=== PATIENT | female | born 1965 | race Caucasian/White ===

== ENCOUNTER → 2017-10-31 08:27 | Outpatient (CLI) | payer BC, SELFPAY ==
[2017-10-31 10:15] LABS: Alanine Aminotransferase 40 U/L (12-78); Albumin Level 3.8 gm/dL (3.4-5.0); Albumin/Globulin Ratio 1.2 (1.1-1.8); Alkaline Phosphatase 70 U/L (46-116); Anion Gap 9.7 mEq/L (5-15); Aspartate Amino Transferase 13 U/L (15-37); Bilirubin,Total 0.4 mg/dL (0.2-1.0); Blood Urea Nitrogen 13 mg/dL (7-18); Calcium 9.1 mg/dL (8.5-10.1); Carbon Dioxide 32 mmol/L (21.0-32.0); Chloride 105 mmol/L (98-107); Cholesterol 131 mg/dL (140-200); Creatinine,Serum 0.72 mg/dL (0.55-1.02); Estimated Glomerular Filt Rate 85 ml/min (>60); Free T4 (Free Thyroxine) 1.03 ng/dl (0.76-1.46); GFR (African American) 103 ML/MIN (>60); Globulin 3.2 gm/dl (1.3-3.2); Glucose 98 mg/dL (74-106); HDL Cholesterol 65 mg/dL (29-89); LDL Cholesterol 58 mg/dL (0-130); Potassium 4.7 mmoL/L (3.5-5.1); Sodium 142 mmol/L (136-145); Thyroid Stimulating Hormone 0.15 uIU/ml (0.358-3.740); Triglycerides 42 mg/dL (30-200); VLDL Cholesterol 8 mg/dL (0-40)
== END ==
PROVIDERS: PCP Nurse Practitioner Family; Visit Provider Nurse Practitioner Family
DX: R00.2 Palpitations (principal); Z13.220 Encounter for screening for lipoid disorders
CPT/HCPCS: 36415; 80053; 80061; 84439; 84443

== ENCOUNTER → 2020-11-15 07:19 | Outpatient (CLI) | payer BC, SELFPAY ==
[2020-11-15 07:57] LABS: Basophils # 0.1 K/mm3 (0-0.2); Basophils % 1.4 % (0.1-2.0); Eosinophils # 0.1 K/mm3 (0.0-0.4); Eosinophils % 3.8 % (0.1-12.0); Hematocrit 42.1 % (37.0-47.0); Hemoglobin 13.5 g/dL (12.2-16.2); Lymphocytes # 1.3 K/mm3 (0.7-4.5); Lymphocytes % 36.5 % (10-50); Mean Corpuscular Hemoglobin 28.5 pg (27.0-31.2); Mean Corpuscular Volume 89.2 fl (81-99); Mean Platelet Volume 6.9 fl (7.4-10.4); Monocytes # 0.2 K/mm3 (0.1-1.0); Monocytes % 6.4 % (1.7-9.3); Neutrophils # 1.9 K/mm3 (1.8-7.8); Platelet Count 472 K/mm3 (142-424); Red Blood Count 4.72 M/mm3 (4.20-5.40); White Blood Count 3.7 K/mm3 (4.8-10.8)
[2020-11-15 09:39] LABS: 25-OH Vitamin D, Total 50.7 ng/mL (30-100)
[2020-11-15 09:50] LABS: Alanine Aminotransferase 28 U/L (12-78); Albumin Level 4.6 g/dl (3.5-5.0); Albumin/Globulin Ratio 1.7 (1.1-1.8); Alkaline Phosphatase 70 U/L (38-126); Anion Gap 12.7 mEq/L (5-15); Aspartate Amino Transferase 31 U/L (14-36); Bilirubin,Total 0.5 mg/dl (0.2-1.3); Blood Urea Nitrogen 14 mg/dl (7-17); Calcium 9.7 mg/dl (8.4-10.2); Carbon Dioxide 29 mmol/L (22.0-30.0); Chloride 102 mmol/L (98-107); Cholesterol 151 mg/dl (140-200); Estimated Glomerular Filt Rate 87 ml/min (>60); GFR (African American) 105 ML/MIN (>60); Globulin 2.7 g/dL (1.3-3.2); Glucose 99 mg/dl (74-100); HDL Cholesterol 75 mg/dl (40-60); Potassium 4.7 mmoL/L (3.5-5.1); Sodium 139 mmol/L (136-145); Total Protein,Serum 7.3 g/dl (6.3-8.2); Triglycerides 56 mg/dl (30-150); VLDL Cholesterol 11 mg/dL (0-40)
[2020-11-15 10:00] LABS: Direct LDL Cholesterol 54.16 mg/dL (100-129)
[2020-11-15 10:55] LABS: Vitamin B12 628 pg/mL (239-931)
== END ==
PROVIDERS: Visit Provider Family Medicine
DX: R53.83 Other fatigue (principal); E78.00 Pure hypercholesterolemia, unspecified
CPT/HCPCS: 36415; 80053; 80061; 82306; 82607; 84443; 85025

== ENCOUNTER → 2021-08-10 09:44 | Outpatient (CLI) | payer BC, SELFPAY ==
--- NOTE | 2021-08-10 09:52 | XR_ITS ---
PROCEDURE INFORMATION: Exam: XR Left Knee Exam date and time: 08/10/2021 9:52 AM Age: 55 years old Clinical indication: Pain; Knee; Left; Additional info: Fell putting up lights -- knee injury TECHNIQUE: Imaging protocol: XR Left knee. Views: 3 views. COMPARISON: No relevant prior studies available. FINDINGS: Bones/joints: There is a linear lucency extending to the lateral tibial plateau on series 2. A nondisplaced fracture may be present. Soft tissues: Normal. Other findings: There is a small effusion. IMPRESSION: Question nondisplaced fracture lateral tibial plateau.
== END ==
PROVIDERS: PCP Nurse Practitioner Family; Visit Provider Physician Assistant
DX: S89.92XA Unspecified injury of left lower leg, initial encounter (principal)
CPT/HCPCS: 73562

== ENCOUNTER → 2021-08-15 07:16 | Outpatient (CLI) | payer BC, SELFPAY ==
--- NOTE | 2021-08-15 07:17 | CT_ITS ---
PROCEDURE: CT KNEE LT WO CON CLINICAL HISTORY: evaluate for left tibial plateau fracture COMPARISON: CR XR KNEE LT 3V from 08/10/2021 TECHNIQUE: Axial images obtained with sagittal and coronal reformats. All CT scans at the facility use one or more dose reduction, viz: automated exposure control, ma/kV adjustment per patient size (including targeted exams where dose is matched to indication, i.e. head), or iterative reconstruction technique. FINDINGS: There is a nondisplaced fracture the medial aspect the lateral tibial plateau. Fracture involves the articular surface just lateral to the posterior tibial spine. No depression the tibial plateau. Minimal osteoarthritic changes are present involving the medial compartment. Small suprapatellar effusion. No lytic or blastic change. IMPRESSION: Nondisplaced lateral tibial plateau fracture with knee joint effusion Dictated by: Henry Cruz MD 08/15/2021 13:50 Henry Cruz MD in [place] 08/15/2021 13:50
== END ==
PROVIDERS: PCP Nurse Practitioner Family; Visit Provider Orthopaedic Surgery
DX: S82.142A Displaced bicondylar fracture of left tibia, initial encounter for closed fracture (principal)
CPT/HCPCS: 73700

== ENCOUNTER 2021-08-20 10:02 | Outpatient (RCR) | payer BC, SELFPAY | END 2021-08-20 11:00 | disposition home or self-care (01) | LOC: PT 10:02 | PROVIDERS: Visit Provider Orthopaedic Surgery | DX: S82.142D Displaced bicondylar fracture of left tibia, subsequent encounter for closed fracture with routine healing (principal) | CPT/HCPCS: 97760 ==

== ENCOUNTER → 2021-08-24 09:43 | Outpatient (CLI) | payer BC, SELFPAY | PROVIDERS: Visit Provider Ophthalmology | DX: Z01.812 Encounter for preprocedural laboratory examination (principal); Z11.52 Encounter for screening for COVID-19 | CPT/HCPCS: C9803; U0003; U0005 ==

== ENCOUNTER 2021-08-27 06:45 | Day surgery (SDC) | payer BC, SELFPAY ==
[2021-08-22 14:45] VITALS: BMI 35.2
[2021-08-27] VITALS (12 sets, daily range): BP systolic 146–200; BP diastolic 79–99; PULSE 52–69; RESP 16–18; TEMP 36.7–36.9; O2SAT 99–100
== END 2021-08-27 09:22 | disposition home or self-care (01) ==
LOC: OR 06:46
PROVIDERS: PCP Family Medicine; Visit Provider Ophthalmology
PROC: (CPT 66982; principal; 2021-08-27 08:00)
DX: H25.812 Combined forms of age-related cataract, left eye (principal); H57.03 Miosis; H25.89 Other age-related cataract; Q13.0 Coloboma of iris; H02.834 Dermatochalasis of left upper eyelid; H02.831 Dermatochalasis of right upper eyelid; Z79.82 Long term (current) use of aspirin; Z88.0 Allergy status to penicillin
CPT/HCPCS: 66982; V2632

== ENCOUNTER → 2021-10-01 10:04 | Outpatient (CLI) | payer BC, SELFPAY ==
--- NOTE | 2021-10-01 10:08 | XR_ITS ---
FINAL REPORT CLINICAL HISTORY: LEFT TIBIAL PLATEAU FX f/u FINDINGS: LEFT KNEE: Three views of the left knee were obtained. Again noted is a fracture of the lateral tibial plateau without significant displacement. This fracture appears subacute. Visualized joint spaces are normally aligned. There is no joint effusion. Soft tissues are unremarkable. IMPRESSION: Subacute fracture of the tibial plateau as described. Reviewed, Interpreted and Dictated by Parag La III, MD Transcribed by Cha Resendiz Authenticated by Parag La III, MD on 10/01/2021 11:34:16 AM [facility]
== END ==
PROVIDERS: PCP Family Medicine; Visit Provider Orthopaedic Surgery
DX: S82.142A Displaced bicondylar fracture of left tibia, initial encounter for closed fracture (principal)
CPT/HCPCS: 73562

== ENCOUNTER → 2021-11-12 08:07 | Outpatient (CLI) | payer BC, SELFPAY ==
--- NOTE | 2021-11-12 08:11 | XR_ITS ---
FINAL REPORT CLINICAL HISTORY: left tibial plateau fx COMPARISON: 10/01/2021 FINDINGS: LEFT KNEE Three views demonstrate a nondisplaced tibial plateau fracture which is stable. Mild degenerative changes are present. No other fracture or dislocation. IMPRESSION: Fracture as above. Reviewed, Interpreted and Dictated by Parag La III, MD Transcribed by Meri Torrez Authenticated by Parag La III, MD on 11/12/2021 09:10:27 AM [facility]
== END ==
PROVIDERS: PCP Family Medicine; Visit Provider Orthopaedic Surgery
DX: S82.142A Displaced bicondylar fracture of left tibia, initial encounter for closed fracture (principal)
CPT/HCPCS: 73562

== ENCOUNTER → 2021-12-16 08:41 | Outpatient (CLI) | payer BC, SELFPAY ==
--- NOTE | 2021-12-16 08:45 | XR_ITS ---
FINAL REPORT TECHNIQUE: Bone mineral density was calculated of the lumbar spine and hip. CLINICAL HISTORY: . post menopausal screening FINDINGS: Using L1-4, the bone mineral density of the spine is 0.876 g/cm2, corresponding to T-score of -1.6. Using the right hip, the bone mineral density of the femoral neck is 0.659 g/cm2, corresponding to a T-score of -1.7. NOTE: T-score: Standard deviation compared with peak bone mass of young adult mean. *Following the recommendations of the International Society of Bone densitometry, classification of hip BMD is based on the lower of two T-scores; total hip or femoral neck. IMPRESSION: Diminished bone mineral density of the lumbar spine and right hip consistent with osteopenia. FRAX 10 year fracture risk is 7.4% for major osteoporotic fractures. Reviewed, Interpreted and Dictated by Parag La III, MD Transcribed by Cha Resendiz Authenticated by Parag La III, MD on 12/16/2021 11:45:[address] [facility]
== END ==
PROVIDERS: PCP Family Medicine; Visit Provider Orthopaedic Surgery
DX: S82.142D Displaced bicondylar fracture of left tibia, subsequent encounter for closed fracture with routine healing (principal)
CPT/HCPCS: 77080

== ENCOUNTER → 2022-04-26 08:22 | Outpatient (CLI) | payer BC, SELFPAY ==
[2022-04-26 09:35] LABS: Alanine Aminotransferase 41 U/L (12-78); Albumin Level 4.2 g/dl (3.5-5.0); Albumin/Globulin Ratio 1.8 (1.1-1.8); Alkaline Phosphatase 82 U/L (38-126); Anion Gap 8.1 mEq/L (5-15); Aspartate Amino Transferase 39 U/L (14-36); Blood Urea Nitrogen 17 mg/dl (7-17); Calcium 9.5 mg/dl (8.4-10.2); Carbon Dioxide 33 mmol/L (22.0-30.0); Chloride 105 mmol/L (98-107); Chol/HDL Ratio 2.2 (1-3.5); Cholesterol 129 mg/dl (140-200); Estimated Glomerular Filt Rate 86 ml/min (>60); GFR (African American) 104 ML/MIN (>60); Globulin 2.3 g/dL (1.3-3.2); Glucose 107 mg/dl (74-100); HDL Cholesterol 60 mg/dl (40-60); Potassium 5.1 mmoL/L (3.5-5.1); Sodium 141 mmol/L (136-145); Total Protein,Serum 6.5 g/dl (6.3-8.2); Triglycerides 46 mg/dl (30-150); VLDL Cholesterol 9 mg/dL (0-40)
[2022-04-26 09:51] LABS: 25-OH Vitamin D, Total 65.5 ng/mL (30-100)
[2022-04-26 09:53] LABS: Bilirubin,Total 0.1 mg/dl (0.2-1.3); Free T4 (Free Thyroxine) 0.93 ng/dl (0.78-2.19)
[2022-04-27 10:09] LABS: Direct LDL Cholesterol 60 mg/dL (100-129)
== END ==
PROVIDERS: PCP Family Medicine; Visit Provider Family Medicine
DX: E78.89 Other lipoprotein metabolism disorders (principal); R79.89 Other specified abnormal findings of blood chemistry; M85.89 Other specified disorders of bone density and structure, multiple sites
CPT/HCPCS: 36415; 80053; 80061; 82306; 84439; 84443

== ENCOUNTER → 2022-05-01 09:50 | Outpatient (CLI) | payer BC, SELFPAY ==
--- NOTE | 2022-05-01 09:53 | MM_ITS ---
PROCEDURE INFORMATION: Exam: MG Bilateral Screening 3D Mammography Exam date and time: 05/01/2022 9:53 AM Age: 56 years old Clinical indication: Screening mammogram TECHNIQUE: Imaging protocol: Bilateral Screening tomosynthesis and 2D mammography including computer-aided detection (CAD) when performed. COMPARISON: MG MY Digital Screen BILAT 02/17/2017 9:21 AM FINDINGS: MAMMOGRAPHY: Breast composition: There are scattered areas of fibroglandular density. Mass: None. Architectural distortion: No new or suspicious architectural distortion. Calcifications: No new or suspicious calcifications are present Asymmetric density: No new or suspicious asymmetric density is present Skin thickening: None. Axillary adenopathy: None. IMPRESSION: No mammographic evidence of malignancy. Recommend annual screening mammography unless otherwise clinically indicated. ASSESSMENT: BI-RADS category 1: Negative
== END ==
PROVIDERS: PCP Family Medicine; Visit Provider Family Medicine
DX: Z12.31 Encounter for screening mammogram for malignant neoplasm of breast (principal)
CPT/HCPCS: 77063; 77067

== ENCOUNTER → 2022-05-15 15:16 | Outpatient (CLI) | payer BC, SELFPAY | PROVIDERS: PCP Family Medicine; Visit Provider Nurse Practitioner | DX: T63.91XA Toxic effect of contact with unspecified venomous animal, accidental (unintentional), initial encounter (principal); Z87.892 Personal history of anaphylaxis | CPT/HCPCS: 36415; 86003 ==

== ENCOUNTER 2023-10-26 15:12 | Outpatient (CLI) | payer BC, SELFPAY | END 2023-10-26 23:59 | LOC: RT 15:13 | PROVIDERS: PCP Family Medicine; Visit Provider Physician Assistant | DX: I49.9 Cardiac arrhythmia, unspecified (principal) | CPT/HCPCS: 93225; 93226 ==

== ENCOUNTER 2023-11-07 07:59 | Outpatient (CLI) | payer BC, SELFPAY ==
[2023-11-07 08:38] LABS: Basophils % 0.5 % (0.1-2.0); Eosinophils # 0.1 K/mm3 (0.0-0.4); Eosinophils % 2.1 % (0.1-12.0); Hematocrit 43.4 % (37.0-47.0); Hemoglobin 14.2 g/dL (12.2-16.2); Lymphocytes # 0.7 K/mm3 (0.7-4.5); Lymphocytes % 14.8 % (10-50); Mean Corpuscular HGB Conc 32.7 g/dL (31.8-35.4); Mean Corpuscular Volume 91.8 fl (81-99); Mean Platelet Volume 7.4 fl (7.4-10.4); Monocytes # 0.3 K/mm3 (0.1-1.0); Monocytes % 5.5 % (1.7-9.3); Neutrophils # 3.8 K/mm3 (1.8-7.8); Platelet Count 449 K/mm3 (142-424); Red Blood Count 4.73 M/mm3 (4.20-5.40); Red Cell Distribution Width 13.4 % (11.5-17.5)
[2023-11-07 10:24] LABS: Alanine Aminotransferase 28 U/L (12-78); Albumin Level 4.4 g/dl (3.5-5.0); Albumin/Globulin Ratio 1.8 (1.1-1.8); Alkaline Phosphatase 65 U/L (38-126); Anion Gap 10.2 mEq/L (5-15); Aspartate Amino Transferase 32 U/L (14-36); Bilirubin,Total 0.7 mg/dl (0.2-1.3); Blood Urea Nitrogen 13 mg/dl (7-17); Calcium 9.4 mg/dl (8.4-10.2); Carbon Dioxide 32 mmol/L (22.0-30.0); Chloride 102 mmol/L (98-107); Chol/HDL Ratio 2.2 (1-3.5); Cholesterol 151 mg/dl (140-200); Estimated Glomerular Filt Rate 86 ml/min (>60); GFR (African American) 104 ML/MIN (>60); Globulin 2.5 g/dL (1.3-3.2); Glucose 98 mg/dl (74-100); HDL Cholesterol 68 mg/dl (40-60); Potassium 5.2 mmoL/L (3.5-5.1); Sodium 139 mmol/L (136-145); Total Protein,Serum 6.9 g/dl (6.3-8.2); Triglycerides 50 mg/dl (30-150); VLDL Cholesterol 10 mg/dL (0-40)
[2023-11-07 10:40] LABS: Free T4 (Free Thyroxine) 1.04 ng/dl (0.78-2.19)
[2023-11-07 10:41] LABS: 25-OH Vitamin D, Total 51.5 ng/mL (30-100)
[2023-11-07 10:55] LABS: Thyroid Stimulating Hormone 1.91 uIU/mL (0.465-4.68)
[2023-11-07 11:14] LABS: Vitamin B12 718 pg/mL (239-931)
== END 2023-11-07 23:59 ==
PROVIDERS: PCP Family Medicine; Visit Provider Physician Assistant
DX: I49.8 Other specified cardiac arrhythmias (principal); I10 Essential (primary) hypertension; E78.2 Mixed hyperlipidemia; E55.9 Vitamin D deficiency, unspecified; E53.8 Deficiency of other specified B group vitamins
CPT/HCPCS: 36415; 80053; 80061; 82306; 82607; 84439; 84443; 85025

== ENCOUNTER 2023-11-12 14:37 | Outpatient (CLI) | payer BC, SELFPAY | END 2023-11-12 23:59 | LOC: RT 14:38 | PROVIDERS: PCP Family Medicine; Visit Provider Nurse Practitioner Family | DX: I49.1 Atrial premature depolarization (principal); I49.3 Ventricular premature depolarization; R00.2 Palpitations; R06.00 Dyspnea, unspecified; R53.83 Other fatigue | CPT/HCPCS: 93270 ==

== ENCOUNTER 2023-11-27 12:46 | Outpatient (CLI) | payer BC, SELFPAY ==
--- NOTE | 2023-11-27 12:46 | CA_ITS ---
APPROVED REPORT EXAM: Comprehensive 2D, Doppler, and color-flow Echocardiogram Support Representative: Augustina Finch, RT(R) Ht: 5 ft 0 in Wt: 186lbs BSA: 1.81 BP: 142/88 mmHg Indications: ABN EKG, palpitations, PIERRE, PAC'S, PVC'S 2D Dimensions Left Atrium 3.75 cm F: 2.7 - 3.8 LA Volume 46.40 mL LVOT 1.89 cm (M/F) 1.5-2.5 LA Volume Index 25.64 mL/m2 (M/F) 16-34 EF AP4 54.10 % GL Strain -17.0 % M-Mode Dimensions RVDd 2.92 cm (0.9-2.6) LVDd 4.96 cm (3.5-5.7) Ao Diam 2.78 cm (2.0-3.7) LVDs 3.44 cm (3.5-5.7) IVSd 1.04 cm (0.6-1.1) PWd 0.72 cm (0.6-1.1) EF (Teich) 58.00% FS 30.60% EDV (Teich) 116.10 mL ESV (Teich) 48.80 mL LV Diastology E Decel Time 247 (160-240 msec) E/A Ratio 0.9 MED E' 9.3 (>= 7 cm/sec) E'/MED E' Ratio 7.94 (<= 14) LAT E' 14.2 (>= 10 cm/sec) E/LAT E' Ratio 5.20 (<= 14) Mitral Valve MV E Max Truong. 74.0 (40-130 cm/s) MV A Velocity 80.0 (40-130 cm/s) E/A Ratio 0.92 MV Decel. Time 247 (160-240 ms) Tricuspid Valve TR P. Velocity 270.00 cm/s RAP Estimate 10.00 mmHg RVSP 39.10 mmHg Left Ventricle The left ventricle is normal size. The left ventricular systolic function is normal. The left ventricular ejection fraction is within the normal range. There is normal left ventricular wall thickness. There is normal LV segmental wall motion. The left ventricular diastolic function is normal. LVEF is 60%. Right Ventricle The right ventricle is normal size. The right ventricular systolic function is normal. Atria The left atrium size is normal. The right atrium size is normal. There is no Doppler evidence of interatrial shunt. Aortic Valve The aortic valve opens well. There is no aortic valvular stenosis. No aortic regurgitation is present. Mitral Valve The mitral valve is mildly thickened. No evidence of mitral valve stenosis. Mild mitral regurgitation. Tricuspid Valve The tricuspid valve leaflets are thin and pliable. Mild tricuspid regurgitation. RVSP is 20-25 mmHg. Pulmonic Valve The pulmonary valve is normal in structure. Trace pulmonic regurgitation. Great Vessels The aortic root is normal in size. The ascending aorta is normal in size. IVC is normal in size and collapses >50% with inspiration. Pericardium There is no pericardial effusion. Other Information Study Quality: Adequate Conclusion Normal biventricular systolic function. Mild MR, mild TR. Electronically signed by : Saige Dillon MD 11/29/2023 23:21:57
== END 2023-11-27 23:59 ==
LOC: RT 12:46
PROVIDERS: PCP Family Medicine; Visit Provider Nurse Practitioner Family
DX: R00.2 Palpitations (principal); R06.00 Dyspnea, unspecified; I49.1 Atrial premature depolarization; I49.3 Ventricular premature depolarization; R53.83 Other fatigue
CPT/HCPCS: 93306

== ENCOUNTER 2024-08-04 15:49 | Outpatient (CLI) | payer BC, SELFPAY ==
--- NOTE | 2024-08-04 15:54 | XR_ITS ---
PROCEDURE INFORMATION: Exam: XR Right Knee Exam date and time: 08/04/2024 4:09 PM Age: 58 years old Clinical indication: Pain; Knee; Right; Additional info: Pain, joint, knee, right TECHNIQUE: Imaging protocol: Radiologic exam of the right knee. Views: 3 views. COMPARISON: No relevant prior studies available. FINDINGS: Bones/joints: No evidence of acute fracture or malalignment. No significant knee joint effusion. Soft tissues: Unremarkable. IMPRESSION: No evidence of acute osseous abnormality in the right knee.
== END 2024-08-04 23:59 | disposition home or self-care (01) ==
LOC: RAD 15:50
PROVIDERS: PCP Family Medicine; Visit Provider Physician Assistant
DX: M25.561 Pain in right knee (principal)
CPT/HCPCS: 73562

== ENCOUNTER 2024-10-12 15:18 | Outpatient (CLI) | payer BC, SELFPAY ==
--- NOTE | 2024-10-12 15:53 | ECG_ITS ---
APPROVED REPORT Exam: Resting ECG HR:70 bpm ECG Measurements Heart Rate 70 AXES MD 125 P 49 QRSd 96 QRS 49 QT 408 T 66 QTc 429 Conclusion SINUS RHYTHM WITH FREQUENT VENTRICULAR PREMATURE COMPLEXES ABNORMAL RHYTHM ECG UNCONFIRMED REPORT Electronically signed by : Aristeo Carrasquillo MD 10/18/2024 20:08:43
[2024-10-12 15:54] VITALS: BMI 36.1
[2024-10-12 16:07] LABS: Basophils # 0.1 K/mm3 (0-0.2); Basophils % 1.2 % (0.1-2.0); Eosinophils # 0.1 K/mm3 (0.0-0.4); Eosinophils % 3.1 % (0.1-12.0); Hematocrit 38.4 % (37.0-47.0); Hemoglobin 12.8 g/dL (12.2-16.2); Lymphocytes # 1.7 K/mm3 (0.7-4.5); Lymphocytes % 40.6 % (10-50); Mean Corpuscular HGB Conc 33.3 g/dL (31.8-35.4); Mean Corpuscular Hemoglobin 29.2 pg (27.0-31.2); Mean Corpuscular Volume 87.5 fl (81-99); Mean Platelet Volume 8.6 fl (7.4-10.4); Monocytes # 0.4 K/mm3 (0.1-1.0); Monocytes % 8.9 % (1.7-9.3); Neutrophils # 1.9 K/mm3 (1.8-7.8); Platelet Count 412 K/mm3 (142-424); Red Blood Count 4.39 M/mm3 (4.20-5.40); Red Cell Distribution Width 12.3 % (11.5-17.5); White Blood Count 4.2 K/mm3 (4.8-10.8)
[2024-10-12 16:20] LABS: Blood Urea Nitrogen 15 mg/dl (7-17); Calcium 9.4 mg/dl (8.4-10.2); Carbon Dioxide 28 mmol/L (22.0-30.0); Chloride 102 mmol/L (98-107); Creatinine Clearance Estimated 132 mL/min (50-200); Estimated Glomerular Filt Rate 102 ml/min (>60); GFR (African American) 123 ML/MIN (>60); Glucose 97 mg/dl (74-100); Sodium 139 mmol/L (136-145)
== END 2024-10-12 23:59 | disposition home or self-care (01) ==
LOC: PREOP 15:19
PROVIDERS: Nurse Anesthetist, Certified Registered; PCP Family Medicine; Visit Provider Orthopaedic Surgery
DX: R94.31 Abnormal electrocardiogram [ECG] [EKG]
CPT/HCPCS: 80048; 85025; 93005

== ENCOUNTER 2024-10-26 08:10 | Day surgery (SDC) | payer BC, SELFPAY ==
[2024-10-13 12:48] VITALS: BMI 36.1
[2024-10-26] VITALS (8 sets, daily range): BP systolic 107–157; BP diastolic 49–98; PULSE 63–73; RESP 16–18; TEMP 36.2; O2SAT 94–97
[2024-10-26] MEDS: LACTATED RINGERS 1000ML 1,000 ML 100 ML IV (09:39)
--- NOTE | 2024-10-26 09:39 | P.PNANES_ITS ---
[facility] Disclaimer: The information contained in this section may have been updated after the patient was seen, as this information can be updated by other users. Medical History Indigestion Abnormal Holter exam Fatigue PVC (premature ventricular contraction) PAC (premature atrial contraction) Dyspnea Palpitations Surgical History History of cataract surgery History of delivery History of tubal ligation History of partial thyroidectomy Family History Other Family history of aortic aneurysm Family history of hypertension Social History Smoking Status: Never smoker second hand exposure: No alcohol intake: never substance use type: denies use current occupational status: employed Travel in the last 8 weeks: None household members: spouse housing: house current occupation: teacher aid current occupational exposures/hazards: No caffeine: Yes [facility] Anesthesia Checklist Patient Identification Patient Identification: Arm Band and Verbal (Name & ) Structural Data Admitted From: Home Planned Operative Procedure/s: Knee scope Consent for Planned Operative Procedure(s) Verified: Yes NPO Status Verified Time NPO: 00:00 Additional verifications Patient : No Anesthesia Reactions: No Hx Blood Transfusions: No Blood Transfusion Reaction: No Cephalosporin Allergy: No Cardiovascular Assessment Heart Sounds: S1 & S2 Pulse Strength: Strong Pulse Rhythm: Regular Peripheral Edema: No Airway Assessment Mallampati Score:: Class I C-Spine Mobility Assessed: Yes TMJ Mobility Assessed: Yes Dentition: Good Dentition Neurological Assessment Level of Consciousness: Awake, Alert and Appropriate Hx Seizures: No Numbness or tingling in extremities: No Anesthesia Plan Anesthesia Risk discussed: Yes Anesthesia Plan: Verified ASA Class: II Anesthesia Type: General
--- NOTE | 2024-10-26 11:47 | EXP.OP.NOTE ---
Date of procedure: 10/26/24 Pre-op Diagnosis:: Right knee medial meniscus tear Post-op Diagnosis:: Right knee complex tear posterior horn medial meniscus Procedure performed:: Right knee arthroscopy partial medial meniscectomy Surgeon:: Doyle Garcia DO [employer] Professor(s):: DAYANA Anesthesia: GETA Estimated blood loss (mL): 0 Operative findings:: Macerated tear posterior horn medial meniscus Operative note:: Patient identified preoperatively. Right knee marked with yes my initials. Transported operative suite. Placed polyp removed. General anesthesia administered airway secured. Right lower extremity prepped and draped within the knee dow. Once prepped and draped final operative timeout performed to identify proper patient procedure and extremity. Everyone involved the case agreed. There is no counter indications beginning. Did receive preoperative antibiotics. Marking pen was used to tracee the bony landmarks of the knee standard portal sites. Esmarch was used to exsanguinate the extremity pneumatic tourniquet inflated to 300 mmHg. Skin knife was used to incise standard anterior lateral portal and the blunt with trocar was placed in the patellofemoral joint exchange with a camera. I swept directly into the medial joint line where the anterior medial portal was made with the help of an 18-gauge spinal needle. This exchanged with a probe. There is a complex tear of the posterior horn of the medial meniscus using a combination of straight biter and sucker shaver partial medial meniscectomy was performed back to stable rim. There was some mild softening of the cartilage but no full thickness cartilage lesions present. Attention was then brought to the intercondylar notch the ACL was seen and intact tensions brought to the lateral joint line within the lateral joint line there is some mild softening of the cartilage and some thinning of the missed meniscus but no meniscus tear and no cartilage lesion. I spoken to the medial lateral gutters and back into the patellofemoral joint patella did track midline in the trochlea. There was some synovitis present anterior compartment was debrided with a sucker shaver. No further pathology was seen the camera is removed the joint was drained local anesthesia filtrated the portal sites skin closed with nylon stitch sterile dressing placed from toe to thigh patient waken anesthesia taken recovery stable condition. Condition: stable Disposition: PACU Complications:: None apparent
--- NOTE | 2024-10-26 11:58 | P.PNANES_ITS ---
[facility] Anesthesia Record Part I Anesthesia Record I Intake, IV Amount: 400 Hydration: Adequate Estimated blood loss (mL): 5 Urine output (mL): 0 Blood Products used (#): none Blood Pressure: 107/49 SaO2: 95 Pulse Rate: 65 Airway Patency: Patent Respiratory Rate: 16 Temperature: 97.1 F Patient is:: Drowsy and Stable Stable to PACU at:: 11:55
[2024-10-26] MEDS: BUPIVACAINE 0.25% 30ML VIAL 75 MG (12:51)
== END 2024-10-26 13:29 | disposition home or self-care (01) ==
PROVIDERS: PCP Family Medicine; Visit Provider Orthopaedic Surgery
PROC: (CPT 29870; principal; 2024-10-26 10:45)
DX: S83.231A Complex tear of medial meniscus, current injury, right knee, initial encounter (principal); X58.XXXA Exposure to other specified factors, initial encounter; Y93.01 Activity, walking, marching and hiking
CPT/HCPCS: 29881; J1100; J2250; J2405; J3010; J7120

== ENCOUNTER 2025-02-14 09:22 | Outpatient (CLI) | payer BC, SELFPAY ==
[2025-02-14 10:14] LABS: Alanine Aminotransferase 34 U/L (12-78); Albumin Level 4.4 g/dl (3.5-5.0); Alkaline Phosphatase 66 U/L (38-126); Aspartate Amino Transferase 32 U/L (14-36); Bilirubin,Direct 0.1 mg/dl (0.0-0.4); Bilirubin,Indirect 0.4 mg/dL (0.0-0.9); Bilirubin,Total 0.5 mg/dl (0.2-1.3); Bilirubin,Unconjugated 0.4 mg/dL (0.0-1.1); Chol/HDL Ratio 2.1 (1-3.5); Cholesterol 148 mg/dl (140-200); HDL Cholesterol 69 mg/dl (40-60); Total Protein,Serum 6.6 g/dl (6.3-8.2); Triglycerides 113 mg/dl (30-150); VLDL Cholesterol 23 mg/dL (0-40)
[2025-02-14 10:25] LABS: Direct LDL Cholesterol 47.29 mg/dL (100-129)
== END 2025-02-14 23:59 | disposition home or self-care (01) ==
LOC: LAB 09:22
PROVIDERS: PCP Family Medicine; Visit Provider Nurse Practitioner Family
DX: R00.2 Palpitations (principal); R53.83 Other fatigue
CPT/HCPCS: 36415; 80061; 80076